=== PATIENT | male | born 1965 | race Two or more races ===

== ENCOUNTER 2020-06-11 09:19 | Outpatient (CLI) | payer OTHER | END 2020-06-11 09:36 | disposition home or self-care (01) | LOC: NUCLEAR 09:19 | PROVIDERS: ATTEND Specialist | DX: I11.9 Hypertensive heart disease without heart failure (principal); R07.2 Precordial pain ==

== ENCOUNTER → 2021-02-24 10:39 | Outpatient (CLI) | payer OTHER | END | disposition home or self-care (01) | LOC: LAB 10:39 | PROVIDERS: ATTEND Surgery | DX: R97.20 Elevated prostate specific antigen [PSA] (principal) ==

== ENCOUNTER 2021-03-24 07:11 | Outpatient (CLI) | payer OTHER | END 2021-03-24 07:19 | disposition home or self-care (01) | LOC: SONOGRAMA 07:11 | PROVIDERS: ATTEND Surgery | DX: D12.9 Benign neoplasm of anus and anal canal (principal); R97.20 Elevated prostate specific antigen [PSA] ==